=== PATIENT | male | born 1980 | race Caucasian/White ===

== ENCOUNTER 2018-12-18 13:10 | Emergency (ER) | payer OTHER ==
[~2018-12-18] VITALS: Ht 195.6 cm; Wt 104.3 kg
[2018-12-18 13:26] VITALS: BP_SYST 137
[2018-12-18] MEDS ORDERED: ASPIRIN 81 MG TAB.CHEW PO ONE (13:45)
[2018-12-18 14:29] LABS: CALCIUM 8.6 mg/dL (8.4-11.0); CREATININE 0.99 mg/dL (0.55-1.30); POTASSIUM 4.2 mmol/L (3.5-5.1)
[2018-12-18 14:30] LABS: INR 0.9 (0.80-1.20); PROTHROMBIN TIME 9.5 SECS (9.5-12.5)
[2018-12-18 14:31] LABS: HEMOGLOBIN 14.9 g/dL (14.0-18.0); RED BLOOD CELL COUNT(AUTO) 5.07 MIL/uL (4.2-6.2); WHITE BLOOD COUNT (AUTO) 8.3 K/uL (4.8-10.8)
[2018-12-18 14:32] LABS: BASOPHILS % (AUTO) 0.2 % (0.0-2.0); EOSINOPHILS # (AUTO) 0.2 K/uL (0.0-0.4); EOSINOPHILS % (AUTO) 1.9 % (0.0-4.0); HEMATOCRIT 43.7 % (36-54); LYMPHOCYTES # (AUTO) 1.7 K/uL (1.0-5.5); LYMPHOCYTES % (AUTO) 20.4 % (20.5-51.5); MEAN CORPUSCULAR HEMOGLOBIN 29 pg (27-31); MEAN CORPUSCULAR HGB CONC 34 % (32-36); MEAN CORPUSCULAR VOLUME 86 fL (79.0-98.0); MONOCYTES # (AUTO) 0.6 K/uL (0.0-1.0); MONOCYTES % (AUTO) 7.7 % (1.7-9.3); NEUTROPHILS # (AUTO) 5.8 K/uL (1.8-7.7); NEUTROPHILS % (AUTO) 69.8 % (40.0-70.0); PLATELET COUNT (AUTO) 262 K/uL (130-430); RED CELL DISTRIBUTION WIDTH 13.4 % (9.0-15.0)
[2018-12-18 14:34] LABS: ALBUMIN 3.7 g/dL (3.4-4.8); TOTAL BILIRUBIN 0.4 mg/dL (0.0-1.0)
[2018-12-18 15:29] VITALS: BP_SYST 127
== END 2018-12-18 15:20 | disposition home or self-care (01) ==
LOC: SED 13:10
DX: F41.9 Anxiety disorder, unspecified (principal); R03.0 Elevated blood-pressure reading, without diagnosis of hypertension
CPT/HCPCS: 36415; 71045; 80053; 82550-TC; 84484; 85025; 85610-TC; 93005; 99284